=== PATIENT | male | born 1940 | race Caucasian/White ===

== ENCOUNTER → 2017-11-05 | Outpatient (CLI) | payer MEDICARE ==
[2017-11-05 09:49] LABS: HCT 43.2 % (39.0-53.0); HGB 14.1 gm/dL (13.0-17.5); MCH 28.3 pg (25.0-35.0); MCHC 32.5 g/dL (31.0-37.0); MCV 86.9 fL (80.0-100.0); Mean Platelet Volume 6.9; Platelet Count 179 k/uL (150-450); RBC 4.97 m/uL (4.30-5.90); RDW 14.2 % (11.5-15.5); WBC 8.9 k/uL (3.8-10.6)
[2017-11-05 10:07] LABS: Potassium 4.9 mmol/L (3.5-5.1)
== END | disposition home or self-care (01) ==
LOC: LABPAT 09:10
PROVIDERS: ATTEND Internal Medicine Interventional Cardiology
DX: Z01.812 Encounter for preprocedural laboratory examination (principal); I25.10 Atherosclerotic heart disease of native coronary artery without angina pectoris
CPT/HCPCS: 36415; 80051; 82565; 84520; 85027

== ENCOUNTER 2017-11-13 10:29 | Day surgery (SDC) | payer MEDICARE ==
[2017-11-08 14:06] VITALS: BMI 23.7
[~2017-11-13 10:29] MED LIST: ALPRAZolam 0.25 MG TAB PO PRN; ALPRAZolam 0.5 MG TAB PO PRN; ASPIRIN 325 MG TAB PO STA; NITROGLYCERIN SL TABS 0.4 MG TAB SUBLINGUAL PRN; SODIUM CHLORIDE 0.9% 1,000 ML in EMPTY BAG 1 BAG IV ONE
[2017-11-13 11:14] VITALS: TEMP 97.7
[2017-11-13] MEDS ORDERED: MIDAZOLAM 2 MG/2 ML VIAL ONE (12:15)
[2017-11-13] MEDS ORDERED: HEPARIN SODIUM 1,000 UN/ML (10ML VL) ONE (12:15)
[2017-11-13] MEDS ORDERED: VERAPAMIL 2.5 MG/ML 2 ML AMP ONE (12:15)
[2017-11-13] MEDS ORDERED: LIDOCAINE 2% INJ 20 MG/ML (20 ML MDV) ONE (12:15)
[2017-11-13] MEDS ORDERED: IV FLUID CONTINUATION 950 ML IV ONE (12:18)
[2017-11-13] MEDS ORDERED: MIDAZOLAM 2 MG/2 ML VIAL IVP ONE (12:29)
[2017-11-13] MEDS ORDERED: LIDOCAINE 2% INJ 20 MG/ML SQ ONE (12:32)
[2017-11-13] MEDS: VERAPAMIL SYRINGE (5 MG/10 ML) INTRAARTER ONE ×2 (12:33→13:31)
[2017-11-13] MEDS ORDERED: IOHEXOL 350 MG/ML 50ML BOTTLE INJ ONE (13:09)
[2017-11-13] MEDS ORDERED: IOPAMIDOL-370 125ML BTL INJ ONE ×2 (13:09)
[2017-11-13] MEDS ORDERED: ADENOSINE 90 MG in SODIUM CHLORIDE 0.9% 60 ML IVP ONE (13:26)
[2017-11-13] MEDS ORDERED: IOPAMIDOL-370 100ML BTL INJ ONE (13:32)
[2017-11-13] MEDS ORDERED: RX INFO: IV CONTRAST WAS GIVEN 1 EACH MISC MISCELLANE PRN (13:43)
[2017-11-13] MEDS ORDERED: SODIUM CHLORIDE 0.9% 1,000 ML IV SCH (13:45)
[2017-11-13 14:00] VITALS: RESP 16
--- NOTE | 2017-11-13 15:10 | CC ---
CARDIAC CATHETERIZATION REPORT DATE OF PROCEDURE: November 13, 2017 PERFORMING PHYSICIAN: Lee Griffith MD, technical maintenance technician. PROCEDURE PERFORMED: 1. Selective left and right coronary angiogram. 2. Left internal mammary artery angiogram. 3. Aortic root angiogram. 4. Left heart catheterization. 5. Fractional flow reserve of the left circumflex coronary artery. INDICATION: This is a pleasant 77-year-old gentleman who is known to have coronary artery disease and prior coronary artery bypass grafting where he received BRUNNER to LAD, was experiencing exertional dyspnea. He underwent myocardial perfusion imaging stress test and that showed ischemia. In view of that, a heart catheterization was recommended. APPROACH: Left radial artery. COMPLICATION: None. LEVEL OF SEDATION: Moderate with sedation length of 63 minutes. PROCEDURE DESCRIPTION: After obtaining an informed consent, the patient was brought to cardiac laboratory cureman. The left radial artery was cannulated using micropuncture technique and the micropuncture wire passed easily, then I placed a 6-Sammarinese sheath in the left radial artery. After that I gave the patient 2 mg of verapamil IA and 10,000 units of heparin IV. I did selective left coronary angiogram using JL4 catheter. I attempted engaging the right coronary artery using multiple catheters including JR4, Shoaib Negrete posterior, Shoaib Negrete, and multipurpose, as well as AL1, and I was unable. Then I did aortic root angiogram which showed the occlusion of the right coronary artery from the ostium. After that I did left internal mammary artery angiogram using JR4 catheter. Subsequently I did FFR of the left circumflex. Please see a separate paragraph for that. SELECTIVE CORONARY ANGIOGRAM: 1. The left main is calcified with intermediate disease distally by the bifurcation of the left circumflex appeared to be in the range of 50% to 60%. 2. The left circumflex has ostial disease appeared to be in the range of 50% to 60%. The mid and distal left circumflex are angiographically normal. 3. The LAD is 100% occluded by the ostium. 4. The RCA is 100% occluded by the ostium. CORONARY BYPASS ANGIOGRAM: The BRUNNER to LAD is patent. AORTIC ROOT ANGIOGRAM: The aortic root angiogram was performed in the ICELANDIC projection and using a power injection and the aortic root appeared to be mildly dilated, but the RCA was not opacified. FFR OF THE LEFT CIRCUMFLEX: Anticoagulation was initiated using the heparin given at the beginning. Subsequently after zeroing the Doppler wire and equalizing between the Doppler wire and the guiding catheter which was JL4 guide catheter, we did FFR per IV adenosine infusion and the FFR came in to be 0.88, which is nonischemic. CONCLUSION: 1. Triple-vessel coronary artery disease. 2. Occluded LAD by the ostium. 3. Intermediate disease involving the ostial left circumflex. 4. Occluded RCA by the ostium. 5. Patent BRUNNER to LAD. 6. The FFR of the left circumflex was nonischemic and came in to be 0.88. 7. The RCA fills by collateral from the left coronary system. POSTPROCEDURE MANAGEMENT: 1. Maximize medical treatment. 2. Follow up with the patient. QUINTIN / LARRYN: [id number] /
--- NOTE | 2017-11-13 15:16 | LTR ---
DATE OF SERVICE: November 13, 2017 RE: Heraclio Kwasi Dear Dr. Pimentel; Mr. Kwasi Pulliam underwent a heart catheterization today. It did reveal patent BRUNNER to LAD. Beside that, it did reveal intermediate disease involving the left circumflex coronary artery with adequate FFR on it came in to be nonischemic. Maximized medical treatment is recommended at this point of time. I want to thank you for allowing me to participate in his care and please do not hesitate to call if you have any question or concern. Sincerely, Lee Griffith MD MMKRISTAN / LARRYN: [id number] /
[2017-11-13 17:36] VITALS: BP 116/82; PULSE 62
== END 2017-11-13 18:00 | disposition home or self-care (01) ==
LOC: CATHCVL 10:29
PROVIDERS: ATTEND Internal Medicine Interventional Cardiology
DX: I25.110 Atherosclerotic heart disease of native coronary artery with unstable angina pectoris (principal); I25.82 Chronic total occlusion of coronary artery; I10 Essential (primary) hypertension; Z95.1 Presence of aortocoronary bypass graft; Z87.891 Personal history of nicotine dependence; Z95.5 Presence of coronary angioplasty implant and graft; I70.213 Atherosclerosis of native arteries of extremities with intermittent claudication, bilateral legs; Z95.820 Peripheral vascular angioplasty status with implants and grafts; Z95.828 Presence of other vascular implants and grafts; E78.5 Hyperlipidemia, unspecified; Z79.02 Long term (current) use of antithrombotics/antiplatelets; Z79.82 Long term (current) use of aspirin; Z79.899 Other long term (current) drug therapy
CPT/HCPCS: 93571; 93459; 93567; 85347; C1769; J2001; J2250; J0153; J1644; Q9967 ×3

== ENCOUNTER 2020-08-24 22:59 | Observation (INO) | payer MEDICARE ==
[2020-08-24 23:10] LABS: Glucose,Whole Blood 113 mg/dL (75-99)
--- NOTE | 2020-08-24 23:12 | ED ---
Syncope HPI - General Stated Complaint: Syncope Time Seen by Provider: 08/24/20 23:05 Source: patient, EMS Mode of arrival: EMS Limitations: no limitations - History of Present Illness Initial Comments: This patient is an 80-year-old man brought by ambulance to have evaluation after syncopal episode. EMS reports that they were called to the patient's residence because he had passed out sitting on a commode. The patient does recall going to the bathroom but does not recall anything until he arrived here in the emergency department. The patient states that he had been feeling like his usual self today. He was not having symptoms prior to this episode. EMS did not observe any seizure like activity. Patient denies any trauma and does not appear to have fallen. MD Complaint: loss of consciousness -: minutes(s) Prodromal Symptoms: none -: minutes(s) Witnessed: yes - by bystander, yes - by EMS Injuries Sustained Associated with Event: None Current Symptoms: nausea History: history of CAD Context: other (Bowel movement) Treatments Prior to Arrival: none - Related Data Home Medications Medication Instructions Recorded Confirmed Aspirin EC [Ecotrin Low Dose] 325 mg PO DAILY 08/14/14 11/13/17 Atenolol [Tenormin] 25 mg PO DAILY 08/14/14 11/13/17 Atorvastatin Calcium [Lipitor] 40 mg PO HS 08/14/14 11/13/17 Bifidobacterium Infantis [Align] 4 mg PO DAILY 08/14/14 11/13/17 Cholecalciferol [Vitamin D3 (25 2,000 unit PO DAILY 08/14/14 11/13/17 Mcg = 1000 Iu)] Citrucel 1,500 mg PO DAILY 08/14/14 11/13/17 [place]-3S/Dha/Epa/Fish Oil [[place]-3 1,200 mg PO DAILY 08/14/14 11/13/17 Fish Oil 1,000 mg Sfgl] Omeprazole [PriLOSEC] 20 mg PO AC-BRKFST 08/14/14 11/13/17 Clopidogrel Bisulfate [Plavix] 75 mg PO DAILY 11/08/17 11/13/17 Docusate [Colace] 100 mg PO BID 11/08/17 11/13/17 Magnesium Gluconate [Magonate] 250 mg PO DAILY 11/08/17 11/13/17 ramipriL [Altace] 5 mg PO BID 11/08/17 11/13/17 Allergies Allergy/AdvReac Type Severity Reaction Status Date / Time No Known Allergies Allergy Verified 02/23/20 11:31 Review of Systems ROS Statement: Those systems with pertinent positive or pertinent negative responses have been documented in the HPI. ROS Other: All systems not noted in ROS Statement are negative. Constitutional: Denies: fever, chills Eyes: Denies: vision change Respiratory: Denies: cough, dyspnea, hemoptysis Cardiovascular: Reports: syncope. Denies: chest pain, palpitations, edema Gastrointestinal: Reports: nausea, vomiting. Denies: abdominal pain, diarrhea, melena, hematochezia Genitourinary: Denies: dysuria, hematuria Musculoskeletal: Denies: back pain Skin: Denies: rash Neurological: Denies: headache, weakness, numbness Past Medical History Past Medical History: Coronary Artery Disease (CAD), Chest Pain / Angina Additional Past Medical History / Comment(s): cataract, stents placed Last Myocardial Infarction Date:: 05/2004 History of Any Multi-Drug Resistant Organisms: None Reported Past Surgical History: Coronary Bypass/CABG, Heart Catheterization, Heart Catheterization With Stent, Hernia Repair Additional Past Surgical History / Comment(s): heart cath, stents, CABG, left leg fem-pop bypass Past Anesthesia/Blood Transfusion Reactions: Postoperative Nausea & Vomiting (PONV) Date of Last Stent Placement:: 12/16/97 Past Psychological History: No Psychological Hx Reported Smoking Status: Never smoker Past Alcohol Use History: None Reported Past Drug Use History: None Reported - Past Family History Mother Family Medical History: Cancer, Osteoarthritis (OA) Additional Family Medical History / Comment(s): multiple bowel problems, osteoporosis Father Family Medical History: Chest Pain / Angina, CVA/TIA, Myocardial Infarction (MD) Sister(s) Family Medical History: COPD, Myocardial Infarction (MD) Brother(s) Family Medical History: Myocardial Infarction (MD) Daughter(s) Family Medical History: Diabetes Mellitus (one daughter with diabetes.) General Exam Limitations: no limitations General appearance: alert, in no apparent distress, cachectic Head exam: Present: atraumatic, normocephalic Eye exam: Present: normal appearance, PERRL, EOMI. Absent: scleral icterus, conjunctival injection ENT exam: Present: mucous membranes dry Neck exam: Present: normal inspection, full ROM Respiratory exam: Present: normal lung sounds bilaterally. Absent: respiratory distress, wheezes, rales, rhonchi, stridor Cardiovascular Exam: Present: normal rhythm (With ectopic beats), bradycardia, normal heart sounds. Absent: systolic murmur, diastolic murmur, rubs GI/Abdominal exam: Present: soft. Absent: distended, tenderness, guarding, rebound, rigid, mass Extremities exam: Present: normal inspection, normal capillary refill. Absent: pedal edema, calf tenderness Back exam: Present: normal inspection. Absent: CVA tenderness (R), CVA tenderness (L) Neurological exam: Present: alert Skin exam: Present: warm, dry, intact, pallor. 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 - EKG Results: EKG: interpreted by ELMER, sinus rhythm, normal axis EKG shows: bradycardia - MD, Pacemaker, Normal: Myocardial infarction: inferior MD (old age indeterminate) Medical Decision Making - Lab Data Result diagrams: 08/24/20 23:23 08/24/20 23:23 Lab Results 08/24/20 08/24/20 08/24/20 Range/Units 23:04 23:23 23:23 WBC 8.8 (3.8-10.6) k/uL RBC 4.78 (4.30-5.90) m/uL Hgb 14.3 (13.0-17.5) gm/dL Hct 42.1 (39.0-53.0) % MCV 88.0 (80.0-100.0) fL MCH 29.8 (25.0-35.0) pg MCHC 33.9 (31.0-37.0) g/dL RDW 13.8 (11.5-15.5) % Plt Count 184 (150-450) k/uL MPV 6.4 Neutrophils % 52 % Lymphocytes % 34 % Monocytes % 7 % Eosinophils % 4 % Basophils % 1 % Neutrophils # 4.6 (1.3-7.7) k/uL Lymphocytes # 3.0 (1.0-4.8) k/uL Monocytes # 0.6 (0-1.0) k/uL Eosinophils # 0.3 (0-0.7) k/uL Basophils # 0.1 (0-0.2) k/uL PT 11.3 (9.0-12.0) sec INR 1.1 (<1.2) APTT 20.0 L (22.0-30.0) sec D-Dimer 3.21 H (<0.60) mg/L FEU Sodium (137-145) mmol/L Potassium (3.5-5.1) mmol/L Chloride (98-107) mmol/L Carbon Dioxide (22-30) mmol/L Anion Gap mmol/L BUN (9-20) mg/dL Creatinine (0.66-1.25) mg/dL Est GFR (CKD-EPI)AfAm (>60 ml/min/1.73 sqM) Est GFR (CKD-EPI)NonAf (>60 ml/min/1.73 sqM) Glucose (74-99) mg/dL POC Glucose (mg/dL) 113 H (75-99) mg/dL POC Glu Tool [employer] Level Five ID Betsy, Padma Plasma Lactic Acid Ulices (0.7-2.0) mmol/L Calcium (8.4-10.2) mg/dL Magnesium (1.6-2.3) mg/dL Total Bilirubin (0.2-1.3) mg/dL AST (17-59) U/L ALT (4-49) U/L Alkaline Phosphatase (38-126) U/L Troponin I (0.000-0.034) ng/mL Total Protein (6.3-8.2) g/dL Albumin (3.5-5.0) g/dL Coronavirus (PCR) (Not Detectd) 08/24/20 08/24/20 08/24/20 Range/Units 23:23 23:23 23:23 WBC (3.8-10.6) k/uL RBC (4.30-5.90) m/uL Hgb (13.0-17.5) gm/dL Hct (39.0-53.0) % MCV (80.0-100.0) fL MCH (25.0-35.0) pg MCHC (31.0-37.0) g/dL RDW (11.5-15.5) % Plt Count (150-450) k/uL MPV Neutrophils % % Lymphocytes % % Monocytes % % Eosinophils % % Basophils % % Neutrophils # (1.3-7.7) k/uL Lymphocytes # (1.0-4.8) k/uL Monocytes # (0-1.0) k/uL Eosinophils # (0-0.7) k/uL Basophils # (0-0.2) k/uL PT (9.0-12.0) sec INR (<1.2) APTT (22.0-30.0) sec D-Dimer (<0.60) mg/L FEU Sodium 133 L (137-145) mmol/L Potassium 4.4 (3.5-5.1) mmol/L Chloride 102 (98-107) mmol/L Carbon Dioxide 21 L (22-30) mmol/L Anion Gap 10 mmol/L BUN 18 (9-20) mg/dL Creatinine 1.07 (0.66-1.25) mg/dL Est GFR (CKD-EPI)AfAm 76 (>60 ml/min/1.73 sqM) Est GFR (CKD-EPI)NonAf 65 (>60 ml/min/1.73 sqM) Glucose 128 H (74-99) mg/dL POC Glucose (mg/dL) (75-99) mg/dL POC Glu Tool And Die Maker Level Five ID Plasma Lactic Acid Ulices 1.6 (0.7-2.0) mmol/L Calcium 9.4 (8.4-10.2) mg/dL Magnesium 1.9 (1.6-2.3) mg/dL Total Bilirubin 0.8 (0.2-1.3) mg/dL AST 40 (17-59) U/L ALT 34 (4-49) U/L Alkaline Phosphatase 76 (38-126) U/L Troponin I <0.012 (0.000-0.034) ng/mL Total Protein 6.8 (6.3-8.2) g/dL Albumin 4.3 (3.5-5.0) g/dL Coronavirus (PCR) (Not Detectd) 08/25/20 Range/Units 01:11 WBC (3.8-10.6) k/uL RBC (4.30-5.90) m/uL Hgb (13.0-17.5) gm/dL Hct (39.0-53.0) % MCV (80.0-100.0) fL MCH (25.0-35.0) pg MCHC (31.0-37.0) g/dL RDW (11.5-15.5) % Plt Count (150-450) k/uL MPV Neutrophils % % Lymphocytes % % Monocytes % % Eosinophils % % Basophils % % Neutrophils # (1.3-7.7) k/uL Lymphocytes # (1.0-4.8) k/uL Monocytes # (0-1.0) k/uL Eosinophils # (0-0.7) k/uL Basophils # (0-0.2) k/uL PT (9.0-12.0) sec INR (<1.2) APTT (22.0-30.0) sec D-Dimer (<0.60) mg/L FEU Sodium (137-145) mmol/L Potassium (3.5-5.1) mmol/L Chloride (98-107) mmol/L Carbon Dioxide (22-30) mmol/L Anion Gap mmol/L BUN (9-20) mg/dL Creatinine (0.66-1.25) mg/dL Est GFR (CKD-EPI)AfAm (>60 ml/min/1.73 sqM) Est GFR (CKD-EPI)NonAf (>60 ml/min/1.73 sqM) Glucose (74-99) mg/dL POC Glucose (mg/dL) (75-99) mg/dL POC Glu Tool And Die Maker Level Five ID Plasma Lactic Acid Ulices (0.7-2.0) mmol/L Calcium (8.4-10.2) mg/dL Magnesium (1.6-2.3) mg/dL Total Bilirubin (0.2-1.3) mg/dL AST (17-59) U/L ALT (4-49) U/L Alkaline Phosphatase (38-126) U/L Troponin I (0.000-0.034) ng/mL Total Protein (6.3-8.2) g/dL Albumin (3.5-5.0) g/dL Coronavirus (PCR) Not Detected (Not Detectd) Disposition Clinical Impression: Syncope, Bradycardia Disposition: ADMITTED IP TO THIS HOSP Condition: Fair
[2020-08-24 23:36] LABS: Basophils # (A) 0.1 k/uL (0-0.2); Basophils % (A) 1 %; Eosinophils # (A) 0.3 k/uL (0-0.7); Eosinophils % (A) 4 %; HCT 42.1 % (39.0-53.0); HGB 14.3 gm/dL (13.0-17.5); Lymphocytes % (A) 34 %; MCH 29.8 pg (25.0-35.0); MCHC 33.9 g/dL (31.0-37.0); Mean Platelet Volume 6.4; Monocytes # (A) 0.6 k/uL (0-1.0); Monocytes % (A) 7 %; Neutrophils # (A) 4.6 k/uL (1.3-7.7); Neutrophils % (A) 52 %; Platelet Count 184 k/uL (150-450); RBC 4.78 m/uL (4.30-5.90); RDW 13.8 % (11.5-15.5); WBC 8.8 k/uL (3.8-10.6)
--- NOTE | 2020-08-24 23:44 | CT ---
EXAMINATION TYPE: CT brain wo con DATE OF EXAM: 08/24/2020 COMPARISON: 08/15/2014 HISTORY: syncope. prior study on PACS CT DLP: 1212.4 mGycm Automated exposure control for dose reduction was used. There is cerebral cortical atrophy. There is no mass effect nor midline shift. There is no sign of in tracranial hemorrhage. Calvarium is intact. Skull base is intact. IMPRESSION: Cerebral atrophy. No acute intracranial abnormality. No change.
--- NOTE | 2020-08-24 23:45 | XR ---
EXAMINATION TYPE: XR chest 1V portable DATE OF EXAM: 08/24/2020 COMPARISON: 08/14/2014 HISTORY: Syncope TECHNIQUE: FINDINGS: There is no heart failure nor confluent pneumonic infiltrate. There is some coarsening of t he interstitial markings. There are no hilar masses. Heart size is normal. Thoracic aorta is atheroma tous. There are chest leads. IMPRESSION: Interstitial fibrotic changes. There is improved inspiration compared to old exam. No hea rt failure.
[2020-08-24 23:53] LABS: Albumin 4.3 g/dL (3.5-5.0); Calcium 9.4 mg/dL (8.4-10.2); Magnesium 1.9 mg/dL (1.6-2.3); Potassium 4.4 mmol/L (3.5-5.1); Total Bilirubin 0.8 mg/dL (0.2-1.3); Total Protein 6.8 g/dL (6.3-8.2)
[2020-08-25 00:01] LABS: INR 1.1 (<1.2); Prothrombin Time 11.3 sec (9.0-12.0)
[2020-08-25 00:08] LABS: D-Dimer 3.21 mg/L FEU (<0.60)
--- NOTE | 2020-08-25 01:32 | CT ---
EXAM: CT Angiography Chest With Intravenous Contrast CLINICAL HISTORY: Possible PE. TECHNIQUE: Axial computed tomographic angiography images of the chest with intravenous contrast. CTDI is 's 14.4 mGy and DLP is 437.3 mGy-cm. This CT exam was performed using one or more of the following dose reduction techniques: automated exposure control, adjustment of the mA and/or kV according to patient size, and/or use of iterative reconstruction technique. MIP reconstructed images were created and reviewed. COMPARISON: No relevant prior studies available. FINDINGS: Pulmonary arteries: Unremarkable. No pulmonary embolism. Aorta: Atherosclerotic calcification of the thoracic aorta and its major branches including the coronary arteries. No evidence of dissection or aneurysm.. Lungs: Severe diffuse emphysematous changes. No mass. Pleural space: Unremarkable. No significant effusion. No pneumothorax. Heart: See above. Bones/joints: No acute fracture. No dislocation. Soft tissues: Unremarkable. Lymph nodes: Unremarkable. No enlarged lymph nodes. Other findings: No clear evidence of acute infiltration. IMPRESSION: No evidence of pulmonary embolus. Severe diffuse emphysematous changes.
[2020-08-25] MEDS ORDERED: NITROGLYCERIN SL TABS 0.4 MG TAB SUBLINGUAL PRN (02:10)
[2020-08-25] MEDS: PANTOPRAZOLE 40 MG TABLET PO SCH (06:53)
[2020-08-25] MEDS ORDERED: CITRUCEL 500 MG PO SCH (09:00)
[2020-08-25] MEDS ORDERED: ASPIRIN 325 MG TAB PO SCH (09:00)
[2020-08-25] MEDS ORDERED: atenoloL 25 MG TAB PO SCH (09:00)
[2020-08-25] MEDS ORDERED: NON FORMULARY DRUG (Magnesium Gluconate 500 MG Tab) PO SCH (09:00)
[2020-08-25] MEDS: CLOPIDOGREL 75 MG TAB PO SCH (09:15)
[2020-08-25] MEDS: LACTOBACILLUS ACIDOPH & BULGAR 1 EACH PACKET PO SCH (09:15)
[2020-08-25] MEDS: lisinopriL 20 MG TAB PO SCH ×2 (09:15→20:22)
[2020-08-25] MEDS: ASPIRIN 81 MG PO SCH (09:15)
[2020-08-25] MEDS: DOCUSATE 100 MG CAP PO SCH ×2 (09:15→20:22)
[2020-08-25] MEDS: CHOLECALCIFEROL 1,000 UNIT TAB PO SCH (09:15)
--- NOTE | 2020-08-25 09:44 | US ---
EXAMINATION TYPE: US carotid duplex BILAT DATE OF EXAM: 08/25/2020 COMPARISON: NONE CLINICAL HISTORY: syncope. syncope, leg weakness EXAM MEASUREMENTS: RIGHT: Peak Systolic Velocity (PSV) cm/sec ----- Right CCA: 95.8 ----- Right ICA: 119.1 ----- Right ECA: 176.3 ICA/CCA ratio: 1.2 RIGHT: End Diastole cm/sec ----- Right CCA: 17.3 ----- Right ICA: 27.5 ----- Right ECA: 18.4 LEFT: Peak Systolic Velocity (PSV) cm/sec ----- Left CCA: 83.4 ----- Left ICA: 200.4 ----- Left ECA: 199.6 ICA/CCA ratio: 2.4 LEFT: End Diastole cm/sec ----- Left CCA: 13.1 ----- Left ICA: 41.5 ----- Left ECA: 18.4 VERTEBRALS (direction of flow): Right Vertebral: Antegrade Left Vertebral: Antegrade Rhythm: Normal Severe hyperechoic plaque at right carotid bulb with more mild to moderate plaque left carotid bulb. Increased velocities and abnormal ratio noted on the left side. IMPRESSION: Moderate to severe atherosclerotic changes without hemodynamically significant stenosis estimated 50-69% on the left felt present. Further investigation with CTA or MRA of the neck is adv ised. Criteria for Assigning % of Stenosis / Diameter reduction (Estimation based on the indirect measurements of the internal carotid artery velocities (ICA PSV). 1. Normal (no stenosis)=ICA PSV < 125 cm/s: ratio < 2.0: ICA EDV<40 cm/s. 2. Less than 50% stenosis=ICA PSV < 125 cm/s: ratio < 2.0: ICA EDV<40 cm/s. 3. 50 to 69% stenosis=ICA PSV of 125 to 230 cm/s: ration 2.0 ? 4.0: ICA EDV 40-100 cm/s. 4. Greater than 70% stenosis to near occlusion= ICA PSV > 230 cm/s: ratio > 4.0: ICA EDV > 100 cm/s. 5. Near occlusion= ICA PSV velocities may be low or undetectable: variable ratio and ICA EDV. 6. Total occlusion=unable to detect flow.
[2020-08-25] MEDS: ENOXAPARIN 40 MG/0.4 ML SYRINGE SQ SCH (10:24)
--- NOTE | 2020-08-25 10:52 | P.CRDCN ---
History of Present Illness History of present illness: HISTORY OF PRESENTING ILLNESS This is a pleasant 80-year-old male past medical history significant for coronary artery disease status post bypass grafting with BRUNNER to LAD in 2004 and multiple PCI's, peripheral vascular disease status post femoral-popliteal bypass, bilateral lower extremity stenting, left carotid endarterectomy, hypertension and dyslipidemia. He does not follow regularly in the office with a ice cream dipper, however he has been off in 2018 for outpatient cardiac catheterization. We have been asked to see in consultation for syncope. He states he took his evening medications yesterday and went to bed. He woke up around 10 PM to use the restroom. While he was walking to the bathroom he started feeling acutely dizzy and lightheaded associated with some diaphoresis. This is the last thing that the patient remembers. He states after that all he remembers is waking up at the hospital. According to EMS documentation the called EMS secondary to unresponsiveness while the patient was on the toilet. Upon their arrival he was sitting on the toilet and was noted to be pale and diaphoretic. His blood pressure at that time was 118/95 with a heart rate of 54 pulse ox of 98% and blood sugar of 299. He is currently seen and examined resting comfortably lying flat in bed. He states he continues to feel somewhat lightheaded telemetry tracings indicate heart rate is 69. He denies symptoms of chest pain, shortness of breath or palpitations. Most recent cardiac catheterization in 2018 showed intermediate disease at the left circumflex, 50- 60% with an FFR of 0.88, patent BRUNNER to LAD, occluded LAD at the ostium, intermediate disease involving the ostial circumflex, occluded RCA at the ostium with collateral flow from the left coronary system. Most recent echocardiogram obtained in 2013 reveals preserved LV systolic function with ejection fraction 50-55% with inferior and septal hypokinesia noted, mild MR and mild TR. DIAGNOSTICS EKG reveals sinus bradycardia heart rate of 49, inferior Q waves and nonspecific abnormalities anteriorly. Telemetry tracings indicate sinus rhythm and sinus bradycardia with no acute arrhythmias or pauses. Chest xray interstitial fibrotic changes with no overt heart failure. CTA negative for pulmonary embolism with severe diffuse emphysematous changes noted. Bilateral carotid Doppler reveals moderate to severe atherosclerotic changes 50- 69% stenosis noted on the left, recommend CTA or MRA of the neck. Laboratory reviewed, CBC unremarkable, d-dimer 3.21, sodium 133, potassium 4.4, creatinine 1.07, magnesium 1.9, cardiac enzymes negative 3. Current cardiac medications include aspirin 81 mg daily, atenolol 25 mg daily, atorvastatin 80 mg daily, Pletal 100 mg daily, Plavix 75 mg daily and ramipril 5 mg twice a day. REVIEW OF SYSTEMS At the time of my exam: CONSTITUTIONAL: Denies fever or chills. CARDIOVASCULAR: Denies chest pain, shortness of breath, orthopnea, PND or palpitations. RESPIRATORY: Denies cough. GASTROINTESTINAL: Denies abdominal pain, diarrhea, constipation, nausea or vomiting. MUSCULOSKELETAL: Denies myalgias. NEUROLOGIC: Complains of feeling lightheaded and dizzy. Denies numbness, tingling or weakness. ENDOCRINE: Denies fatigue, weight change, polydipsia or polyurina. GENITOURINARY: Denies burning, hematuria or urgency with micturation. HEMATOLOGIC: Denies history of anemia or bleeding. PHYSICAL EXAMINATION Blood pressure 153/80 heart rate 74 afebrile and maintaining oxygen saturation on nasal cannula. CONSTITUTIONAL: No apparent distress. HEENT: Head is normocephalic. Pupils are equal, round. Sclerae anicteric. Mucous membranes of the mouth are moist. No JVD. Bilateral carotid bruit left greater than right. CHEST EXAMINATION: Lungs are clear to auscultation. No chest wall tenderness is noted on palpation or with deep breathing. Diminished bilaterally. HEART EXAMINATION: Regular rate and rhythm. S1, S2 heard. Systolic ejection murmur at the base, no gallops or rub. ABDOMEN: Soft, nontender. Positive bowel sounds. EXTREMITIES: 1+ peripheral pulses, no lower extremity edema and no calf tenderness. NEUROLOGIC EXAMINATION: Patient is awake, alert and oriented x3. ASSESSMENT Syncope Coronary artery disease status post bypass grafting Peripheral vascular disease Hypertension Dyslipidemia PLAN Syncope likely related to vasovagal spell. Could be exacerbated by bradycardia. Echocardiogram has been requested and will be reviewed. Hold atenolol. Check for orthostatic changes. Ongoing telemetry monitoring. Further recommendations to follow based upon clinical course. Thank you kindly for this consultation. Nurse Practitioner note has been reviewed, I agree with a documented findings and plan of care. Patient was seen and examined. Past Medical History Past Medical History: Coronary Artery Disease (CAD), Chest Pain / Angina Additional Past Medical History / Comment(s): cataract, stents placed Last Myocardial Infarction Date:: 05/2004 History of Any Multi-Drug Resistant Organisms: None Reported Past Surgical History: Coronary Bypass/CABG, Heart Catheterization, Heart Catheterization With Stent, Hernia Repair Additional Past Surgical History / Comment(s): heart cath, stents, CABG, left leg fem-pop bypass Past Anesthesia/Blood Transfusion Reactions: Postoperative Nausea & Vomiting (PONV) Date of Last Stent Placement:: 12/16/97 Past Psychological History: No Psychological Hx Reported Smoking Status: Never smoker Past Alcohol Use History: None Reported Past Drug Use History: None Reported - Past Family History Mother Family Medical History: Cancer, Osteoarthritis (OA) Additional Family Medical History / Comment(s): multiple bowel problems, osteoporosis Father Family Medical History: Chest Pain / Angina, CVA/TIA, Myocardial Infarction (IA) Sister(s) Family Medical History: COPD, Myocardial Infarction (IA) Brother(s) Family Medical History: Myocardial Infarction ([place]) Daughter(s) Family Medical History: Diabetes Mellitus (one daughter with diabetes.) Medications and Allergies Home Medications Medication Instructions Recorded Confirmed Type Aspirin EC [Ecotrin Low Dose] 81 mg PO DAILY 08/14/14 08/25/20 History Atenolol [Tenormin] 25 mg PO DAILY 08/14/14 08/25/20 History Bifidobacterium Infantis [Align] 4 mg PO DAILY 08/14/14 08/25/20 History Cholecalciferol [Vitamin D3 (25 1,000 unit PO DAILY 08/14/14 08/25/20 History Mcg = 1000 Iu)] [place]-3S/Dha/Epa/Fish Oil [[place]-3 1,200 mg PO DAILY 08/14/14 08/25/20 History Fish Oil 1,000 mg Sfgl] Omeprazole [PriLOSEC] 20 mg PO AC-BRKFST 08/14/14 08/25/20 History Clopidogrel Bisulfate [Plavix] 75 mg PO DAILY 11/08/17 08/25/20 History ramipriL [Altace] 5 mg PO BID 11/08/17 08/25/20 History Atorvastatin [Lipitor] 80 mg PO HS 08/25/20 08/25/20 History Cilostazol [Pletal] 100 mg PO DAILY 08/25/20 08/25/20 History Magnesium 250 mg PO DAILY 08/25/20 08/25/20 History Allergies Allergy/AdvReac Type Severity Reaction Status Date / Time No Known Allergies Allergy Verified 08/25/20 08:19 Physical Exam Vitals: Vital Signs Temp Pulse Pulse Resp BP BP Pulse Ox 08/25/20 03:06 98 F 74 18 153/80 97 08/25/20 01:16 97.6 F 58 L 18 127/55 99 08/24/20 23:14 46 L 20 112/50 97 08/24/20 23:02 48 L 18 132/59 98 Intake and Output 08/24/20 08/25/20 08/25/20 22:59 06:59 14:59 Other: Weight 90.718 kg Results 08/24/20 23:23 08/24/20 23:23 Cardiac Enzymes 08/24/20 08/24/20 08/25/20 Range/Units 23:23 23:23 02:31 AST 40 (17-59) U/L Troponin I <0.012 0.020 (0.000-0.034) ng/mL 08/25/20 Range/Units 05:36 AST (17-59) U/L Troponin I 0.025 (0.000-0.034) ng/mL Coagulation 08/24/20 Range/Units 23:23 PT 11.3 (9.0-12.0) sec APTT 20.0 L (22.0-30.0) sec CBC 08/24/20 Range/Units 23:23 WBC 8.8 (3.8-10.6) k/uL RBC 4.78 (4.30-5.90) m/uL Hgb 14.3 (13.0-17.5) gm/dL Hct 42.1 (39.0-53.0) % Plt Count 184 (150-450) k/uL Comprehensive Metabolic Panel 08/24/20 Range/Units 23:23 Sodium 133 L (137-145) mmol/L Potassium 4.4 (3.5-5.1) mmol/L Chloride 102 (98-107) mmol/L Carbon Dioxide 21 L (22-30) mmol/L BUN 18 (9-20) mg/dL Creatinine 1.07 (0.66-1.25) mg/dL Glucose 128 H (74-99) mg/dL Calcium 9.4 (8.4-10.2) mg/dL AST 40 (17-59) U/L ALT 34 (4-49) U/L Alkaline Phosphatase 76 (38-126) U/L Total Protein 6.8 (6.3-8.2) g/dL Albumin 4.3 (3.5-5.0) g/dL Current Medications Generic Name Dose Route Start Last Admin Trade Name Freq PRN Reason Stop Dose Admin Aspirin 325 mg 08/25/20 09:00 Aspirin 325 Mg Tab PO DAILY [facility] Atenolol 25 mg 08/25/20 09:00 Atenolol 25 Mg Tab PO DAILY [facility] Atorvastatin Calcium 40 mg 08/25/20 21:00 Atorvastatin 40 Mg Tab PO HS [facility] Cholecalciferol 2,000 unit 08/25/20 09:00 Cholecalciferol 1,000 Unit Tab PO DAILY [facility] Clopidogrel Bisulfate 75 mg 08/25/20 09:00 Clopidogrel 75 Mg Tab PO DAILY [facility] Docusate Sodium 100 mg 08/25/20 09:00 Docusate 100 Mg Cap PO BID [facility] Enoxaparin Sodium 40 mg 08/25/20 09:00 Enoxaparin 40 Mg/0.4 Ml Syringe SQ DAILY [facility] Lactobacillus Acidoph/Bulgaricus 1 each 08/25/20 09:00 Lactobacillus Acidoph & Bulgar 1 Each Packet PO DAILY [facility] Lisinopril 20 mg 08/25/20 09:00 Lisinopril 20 Mg Tab PO BID [facility] Nitroglycerin 0.4 mg 08/25/20 02:10 Nitroglycerin Sl Tabs 0.4 Mg Tab SUBLINGUAL Q5M PRN Chest Pain Pantoprazole Sodium 40 mg 08/25/20 07:30 08/25/20 06:53 Pantoprazole 40 Mg Tablet PO 40 mg AC-BRKFST [facility] Administration Intake and Output 08/24/20 08/25/20 08/25/20 22:59 06:59 14:59 Other: Weight 90.718 kg 08/24/20 23:23 08/24/20 23:23
--- NOTE | 2020-08-25 11:20 | ECHOF ---
Referral Reason:Syncop2 MEASUREMENTS -------- HEIGHT: 182.9 cm WEIGHT: 90.7 kg BP: 153/80 RVIDd: 2.9 cm (< 3.3) IVSd: 1.3 cm (0.6 - 1.1) LVIDd: 5.2 cm (3.9 - 5.3) LVPWd: 1.3 cm (0.6 - 1.1) IVSs: 1.7 cm LVIDs: 3.5 cm LVPWs: 2.1 cm LA Diam: 4.1 cm (2.7 - 3.8) LAESV Index (A-L): 36.66 ml/m Ao Diam: 3.6 cm (2.0 - 3.7) AV Cusp: 2.0 cm (1.5 - 2.6) MV EXCURSION: 16.144 mm (> 18.000) MV EF SLOPE: 35 mm/s (70 - 150) EPSS: 0.9 cm MV E Kris: 0.64 m/s MV DecT: 394 ms MV A Kris: 1.12 m/s MV E/A Ratio: 0.58 AR PHT: 598 ms FINDINGS -------- This was a technically good study. The left ventricular size is normal. There is mild concentric left ventricular hypertrophy. Overa ll left ventricular systolic function is mild-moderately impaired with, an EF between 40 - 45 %. Ba soumya inferior LV wall motion is hypokinetic. Basal inferoseptal LV wall motion is hypokinetic. M id inferior LV wall motion is hypokinetic. Mid inferoseptal LV wall motion is hypokinetic. The right ventricle is normal in size. LA is moderately dilated 34-39 ml/m2 The right atrium is normal in size. Interatrial and interventricular septum intact. Aortic valve is trileaflet and is mildly thickened. There is picn-vy-ruvluvtk aortic regurgitation. Mild mitral regurgitation is present. Trace tricuspid regurgitation present. Trace/mild (physiologic) pulmonic regurgitation. The aortic root size is normal. Normal inferior vena cava with normal inspiratory collapse consistent with estimated right atrial pre ssure of 5 mmHg. There is no pericardial effusion. CONCLUSIONS -------- 1. The left ventricular size is normal. 2. There is mild concentric left ventricular hypertrophy. 3. Overall left ventricular systolic function is mild-moderately impaired with, an EF between 40 - 45 %. 4. Basal inferior LV wall motion is hypokinetic. 5. Basal inferoseptal LV wall motion is hypokinetic. 6. Mid inferior LV wall motion is hypokinetic. 7. Mid inferoseptal LV wall motion is hypokinetic. 8. LA is moderately dilated 34-39 ml/m2 9. Aortic valve is trileaflet and is mildly thickened. 10. There is dlck-ka-ysqkrjpq aortic regurgitation. 11. Mild mitral regurgitation is present. 12. Trace tricuspid regurgitation present. 13. Trace/mild (physiologic) pulmonic regurgitation. 14. There is no pericardial effusion. PRN OCCUPATIONAL THERAPIST: MARIA ESTHER Villanueva
[2020-08-25 12:09] LABS: Glucose,Whole Blood 107 mg/dL (75-99)
[2020-08-25 17:13] LABS: Glucose,Whole Blood 113 mg/dL (75-99)
[2020-08-25] MEDS ORDERED: ATORVASTATIN 80 MG TAB PO SCH (21:00)
[2020-08-25] MEDS ORDERED: ATORVASTATIN 40 MG TAB PO SCH (21:00)
[2020-08-26 05:36] VITALS: RESP 18
[2020-08-26] MEDS: PANTOPRAZOLE 40 MG TABLET PO SCH (06:34)
[2020-08-26 07:57] LABS: Basophils % (A) 0 %; Eosinophils # (A) 0.2 k/uL (0-0.7); Eosinophils % (A) 3 %; HCT 41.2 % (39.0-53.0); HGB 13.6 gm/dL (13.0-17.5); Lymphocytes # (A) 1.3 k/uL (1.0-4.8); Lymphocytes % (A) 17 %; MCH 29.5 pg (25.0-35.0); MCHC 33.1 g/dL (31.0-37.0); MCV 89.1 fL (80.0-100.0); Mean Platelet Volume 6.5; Monocytes # (A) 0.5 k/uL (0-1.0); Monocytes % (A) 6 %; Neutrophils # (A) 5.5 k/uL (1.3-7.7); Neutrophils % (A) 72 %; Platelet Count 162 k/uL (150-450); RBC 4.62 m/uL (4.30-5.90); RDW 13.7 % (11.5-15.5); WBC 7.6 k/uL (3.8-10.6)
[2020-08-26 08:17] LABS: Potassium 4.6 mmol/L (3.5-5.1); Total Protein 6.5 g/dL (6.3-8.2)
[2020-08-26] MEDS ORDERED: cilostazoL 100 MG TAB PO SCH (09:00)
[2020-08-26] MEDS: lisinopriL 20 MG TAB PO SCH (10:35)
[2020-08-26] MEDS: ASPIRIN 81 MG PO SCH (10:35)
[2020-08-26] MEDS: CHOLECALCIFEROL 1,000 UNIT TAB PO SCH (10:35)
[2020-08-26] MEDS: ENOXAPARIN 40 MG/0.4 ML SYRINGE SQ SCH (10:36)
[2020-08-26] MEDS: DOCUSATE 100 MG CAP PO SCH (10:36)
[2020-08-26] MEDS: LACTOBACILLUS ACIDOPH & BULGAR 1 EACH PACKET PO SCH (10:36)
[2020-08-26] MEDS: CLOPIDOGREL 75 MG TAB PO SCH (10:42)
--- NOTE | 2020-08-26 12:36 | CT ---
EXAMINATION TYPE: CT angio head neck DATE OF EXAM: 08/26/2020 COMPARISON: CT brain 08/24/2020 and ultrasound 08/25/2020 HISTORY: 80-year-old male Abnormal US. TECHNIQUE: Contiguous axial scanning of the head and neck performed with IV Contrast, patient injecte d with 65 mL of Isovue 370. Coronal/sagittal MIP reconstructions performed. 3-D reconstructions gener ated on a dedicated independent workstation. CT DLP: 549.1 mGycm Automated exposure control for dose reduction was used. FINDINGS: NECK: COPD with moderate emphysema in the visualized upper lungs. Areas of dependent atelectasis are presen t. Small area of groundglass opacity anterior left upper lobe. Mild to moderate atherosclerotic arch calcifications. Ectatic upper descending thoracic aorta at 3.3 cm. Mild atherosclerotic narrowing at the origin of the brachiocephalic and left common carotid arteries. Possible moderate atherosclerotic narrowing of the bilateral vertebral artery origins. The vessels ar e codominant and otherwise patent throughout their course. Right common carotid artery is patent. Moderate atherosclerotic change of the right carotid bifurcation with mild, less than 25% narrowing i n the proximal right ICA. Remainder of the left common carotid artery is patent. Severe atherosclerotic change within the left bifurcation with a large plaque in the distal common carotid artery narrowing the lumen to 2.0 mm. Th is qualifies as a severe, 80% focal stenosis. Mild, less than 15% narrowing from atherosclerotic calcification and soft plaque within the left lundberg tid bulb. Remainder of the left internal carotid artery is patent. HEAD: Focal atherosclerotic calcification proximal V4 segment right vertebral artery causing moderate narro wing. Otherwise, the bilateral vertebral and basilar arteries are patent as is the remainder of the p osterior circulation. Moderate atherosclerotic calcifications within the bilateral carotid siphons. There are mild segmenta l narrowing within the right carotid siphon. Small bilateral posterior communicating arteries are seen. The anterior circulation is patent. No aneurysmal change is identified. IMPRESSION: NECK: 1. POSSIBLE MODERATE ATHEROSCLEROTIC NARROWING AT THE ORIGIN OF THE BILATERAL VERTEBRAL ARTERIES. THE REMAINDER OF THE VERTEBRAL ARTERIES ARE PATENT THROUGHOUT THE COURSE. 2. SEVERE ATHEROSCLEROTIC CHANGE AT THE LEFT CAROTID BIFURCATION WITH A LARGE SOFT PLAQUE LOCATED IN THE DISTAL LEFT COMMON CAROTID ARTERY NARROWING THE LUMEN DOWN TO 2 MM. THIS IS A SEVERE, 80% FOCAL S TENOSIS. 3. MILD ATHEROSCLEROTIC NARROWING WITHIN THE BILATERAL PROXIMAL ICA's, 25% OR LESS. HEAD: 4. MODERATE FOCAL ATHEROSCLEROTIC NARROWING PROXIMAL V4 SEGMENT RIGHT VERTEBRAL ARTERY. 5. MILD ATHEROSCLEROTIC NARROWING WITHIN THE BILATERAL CAROTID SIPHONS, RIGHT GREATER THE LEFT. 6. OTHERWISE, NO LARGE VESSEL INTRACRANIAL ARTERIAL OCCLUSION, SIGNIFICANT STENOSIS, OR ANEURYSMAL CH MARLENI IS SEEN.
--- NOTE | 2020-08-26 13:21 | P.PN ---
Subjective HISTORY OF PRESENTING ILLNESS This is a pleasant 80-year-old male past medical history significant for coronary artery disease status post bypass grafting with BRUNNER to LAD in 2004 and multiple PCI's, peripheral vascular disease status post femoral-popliteal bypass, bilateral lower extremity stenting, left carotid endarterectomy, hyperte nsion and dyslipidemia. He does not follow regularly in the office with a cable respooler, however he has been off in 2018 for outpatient cardiac catheterization. He is seen and examined sitting up in no acute distress. He denies any further symptoms of dizziness. Telemetry tracings reveal sinus me chanism and some sinus bradycardia heart rates in the 50s. Blood pressure 126/60 heart rate 57 afebrile maintaining oxygen saturation on nasal cannula. Orthostatic vital signs unremarkable. PHYSICAL EXAMINATION CONSTITUTIONAL: No apparent distress. HEENT: Head is normocephalic. Pupils are equal, round. Sclerae anicteric. Mucous membranes of the mouth are moist. No JVD. Bilateral carotid bruit left greater than right. CHEST EXAMINATION: Lungs are clear to auscultation. No chest wall tenderness is noted on palpation or with deep breathing. Diminished bilaterally. HEART EXAMINATION: Regular rate and rhythm. S1, S2 heard. Systolic ejection murmur at the base, no gallops or rub. EXTREMITIES: 1+ peripheral pulses, no lower extremity edema and no calf tenderness. ASSESSMENT Syncope Coronary artery disease status post bypass grafting Peripheral vascular disease Hypertension Dyslipidemia PLAN Currently stable for discharge on current medical regimen. Continue to hold atenolol. Recommend outpatient event monitoring. Follow-up with Dr. Griffith. Nurse Practitioner note has been reviewed, I agree with a documented findings and plan of care. Patient was seen and examined. Objective - Vital Signs Vital signs: Vital Signs Temp 98.1 F 08/26/20 04:00 Pulse 57 L 08/26/20 04:00 Resp 18 08/26/20 04:00 BP 126/60 08/26/20 04:00 Pulse Ox 97 08/26/20 04:00 Intake & Output 08/25/20 08/26/20 08/26/20 18:59 06:59 18:59 Intake Total 1220 Output Total 200 Balance 1020 Weight 72.5 kg 73.4 kg Intake: IV 20 Invasive Line 1 20 Oral 1200 Output: Urine 200 Other: # Voids 1 - Labs CBC & Chem 7: 08/26/20 07:33 08/26/20 07:33 Labs: Abnormal Lab Results - Last 24 Hours (Table) 08/25/20 08/25/20 08/26/20 Range/Units 12:03 17:00 07:33 Sodium 133 L (137-145) mmol/L Glucose 101 H (74-99) mg/dL POC Glucose (mg/dL) 107 H 113 H (75-99) mg/dL HDL Cholesterol 35 L (40-60) mg/dL Microbiology - Last 24 Hours (Table) 08/25/20 00:05 Blood Culture - Preliminary Blood No Growth after 24 hours 08/24/20 23:50 Blood Culture - Preliminary Blood No Growth after 24 hours
--- NOTE | 2020-08-26 14:14 | P.DS ---
Providers Date of admission: 08/25/20 02:10 Expected date of discharge: 08/26/20 Attending physician: Jillian Pimentel Consults: 08/25/20 02:10 Consult Physician Routine Consulting Provider: Pietro Scruggs Consult Reason/Comments: syncope Do you want consulting provider notified?: Yes Primary care physician: Jillian Pimentel Hospital Course: This is an 80 year old male one of my patient with a previous medical history significant for CAD post CABG and left heart catherization with PCI in 1997 and last heart catherization was in 10/15/2017 without intervention, hyperlipidemia, history of peripheral artery disease post left fem-pop bypass, and chronic claudication, history of carotid artery disease post left CEA, GERD and enlarged prostate, patient was brought into the Emergency department at [facility] after a syncopal episode that happened while he was sitting on the commode chair, by the time EMS got there he was still out of it, he remembered going to bathroom and he does not recall what happened after that, there was no seizure, no incontinence , he denies any chest pain or shortness of breath, he denies any headaches , no numbness or weakness, no dysphagia , no double vision, he was transported to the ER and his 12-Lead EKG did show old inferior AR with sinus bradycardia, CXR showed emphysema and because his D-Dimer was elevated CTA of the chest showed no evidence of PE, but showed sever epmhysema changes, patient was admitted to the hospital with cardiology consult. 08/26: Patient was seen by cardiology and atenolol was discontinued due to b radycardia. Recommendations were for outpatient event monitor which was arranged prior to discharge. Patient has had no further episodes of dizziness. No chest pain or shortness of breath. Heart rate has been in sinus bradycardia in the 50s, blood pressure 126/60, afebrile, pulse ox 93% on room air. CBC unremarkable. Sodium 133, potassium 4.6, creatinine 1. Liver function tests normal. Triglycerides 78, cholesterol 88, LDL 37, HDL 35. Patient will be discharged home today in stable condition. Echocardiogram reveals EF of 40-45% with mild concentric left ventricular hypertrophy, mild to moderate aortic regurgitation, mild mitral regurgitation, trace tricuspid regurgitation. Carotid ultrasound revealed moderate to severe atherosclerotic changes without hemodynamically significant stenosis estimated 50-60% on the left. CT angiogram of the neck revealed possible moderate atherosclerotic narrowing at the origin of the bilateral vertebral arteries. Severe atherosclerotic change of the left carotid bifurcation with large soft plaque noted in the distal left common carotid artery narrowing lumen down to 2 mm. This is severe 80% focal stenosis. Mild atherosclerotic narrowing with pain in bilateral proximal ICAs 25% or less. CT angiogram of the Head revealed moderate focal atherosclerotic narrowing proximal V4 segment right vertebral artery. Mild atherosclerotic narrowing within the bilateral carotid siphons, right greater than left. No large vessel intracranial arterial occlusion, significant stenosis or aneurysmal change. Discharge diagnoses: 1. Syncope, possible vasovagal syncope, possibly secondary to bradycardia. 2. CAD post CABG and PCI. 3. Hypertension and hypertensive cardiovascular disease. 4. Hyperlipidemia. 5. PAD post left Fem-Pop bypass with chronic claudication. 6. Enlarged prostate. 7. GERD. 8. Vitamin D deficiency. Discharge plan: Home Impression and plan of care have been directed as dictated by the signing physician. Jen Diaz nurse practitioner acting as scribe for signing physician. Patient Condition at Discharge: Good Plan - Discharge Summary Discharge Rx Participant: No New Discharge Prescriptions: Continue Omeprazole [PriLOSEC] 20 mg PO AC-BRKFST Aspirin EC [Ecotrin Low Dose] 81 mg PO DAILY [place]-3S/Dha/Epa/Fish Oil [[place]-3 Fish Oil 1,000 mg Sfgl] 1,200 mg PO DAILY Bifidobacterium Infantis [Align] 4 mg PO DAILY Cholecalciferol [Vitamin D3 (25 Mcg = 1000 Iu)] 1,000 unit PO DAILY ramipriL [Altace] 5 mg PO BID Atorvastatin [Lipitor] 80 mg PO HS Magnesium 250 mg PO DAILY Cilostazol [Pletal] 100 mg PO DAILY Discontinued Atenolol [Tenormin] 25 mg PO DAILY Clopidogrel Bisulfate [Plavix] 75 mg PO DAILY Discharge Medication List Aspirin EC [Ecotrin Low Dose] 81 mg PO DAILY 08/14/14 [History] Bifidobacterium Infantis [Align] 4 mg PO DAILY 08/14/14 [History] Cholecalciferol [Vitamin D3 (25 Mcg = 1000 Iu)] 1,000 unit PO DAILY 08/14/14 [History] [place]-3S/Dha/Epa/Fish Oil [[place]-3 Fish Oil 1,000 mg Sfgl] 1,200 mg PO DAILY 08/14/14 [History] Omeprazole [PriLOSEC] 20 mg PO AC-BRKFST 08/14/14 [History] ramipriL [Altace] 5 mg PO BID 11/08/17 [History] Atorvastatin [Lipitor] 80 mg PO HS 08/25/20 [History] Cilostazol [Pletal] 100 mg PO DAILY 08/25/20 [History] Magnesium 250 mg PO DAILY 08/25/20 [History] Follow up Appointment(s)/Referral(s): Jillian Pimentel MD [Primary Care Provider] - 09/01/20 10:45 am Lee Griffith MD [STAFF PHYSICIAN] - 09/06/20 10:00 am Patient Instructions/Handouts: Syncope (DC) Discharge Disposition: HOME SELF-CARE
[2020-08-26 14:23] VITALS: BP 139/74; PULSE 58; TEMP 97.2
--- NOTE | 2020-08-28 13:14 | P.HPIM ---
History of Present Illness H&P Date: 08/25/20 Chief Complaint: Syncope. This is an 80 year old male one of my patient with a previous medical history significant for CAD post CABG and left heart catherization with PCI in 1997 and last heart catherization was in 10/15/2017 without intervention, hyperlipidemia, history of peripheral artery disease post left fem-pop bypass, and chronic claudication, history of carotid artery disease post left CEA, GERD and enlarged prostate, patient was brought into the Emergency department at [facility] after a syncopal episode that happened while he was sitting on the commode chair, by the time EMS got there he was still out of it, he remembered going to bathroom and he does not recal what happened after that, there was no seizure, no incontinence , he denies any chest pain or shortness of breath, he denies any headaches , no numbness or weakness, no dysphagia , no double vision, he was transported to the ER and his 12-Lead EKG did show old inferior GA with sinus bradycardia, CXR showed emphysema and because his D-Dimer was elevated CTA of the chest showed no evidence of PE, but showed sever epmhysema changes, patient was admitted to the hospital with cardiology consult. Past Medical History Past Medical History: Coronary Artery Disease (CAD), Chest Pain / Angina, Hyperlipidemia, Hypertension, Myocardial Infarction (GA), Osteoarthritis (OA), Prostate Disorder, Vascular Disorder Additional Past Medical History / Comment(s): cataract, stents placed, PAD, carotid artery disease Last Myocardial Infarction Date:: 2014 History of Any Multi-Drug Resistant Organisms: None Reported Past Surgical History: Coronary Bypass/CABG, Heart Catheterization, Heart Catheterization With Stent, Hernia Repair Additional Past Surgical History / Comment(s): heart cath, stents, CABG, left leg fem-pop bypass, left carotid CEA. Past Anesthesia/Blood Transfusion Reactions: Postoperative Nausea & Vomiting (PONV) Date of Last Stent Placement:: 12/16/97 Past Psychological History: No Psychological Hx Reported Smoking Status: Former smoker (used to smoke a pack a day but quit more than 20 years ago.) Past Alcohol Use History: None Reported Past Drug Use History: None Reported - Past Family History Mother Family Medical History: No Reported History (Mother at the age of 85 from old age), Osteoarthritis (OA) Additional Family Medical History / Comment(s): multiple bowel problems, osteoporosis Father Family Medical History: Chest Pain / Angina, CVA/TIA, Myocardial Infarction (GA) (Father at the age of 87 from GA) Sister(s) Family Medical History: COPD, Myocardial Infarction (GA) (patient had 3 sisters one from heart disea and dementia, one is alive with osteoarthritis and the third one with hypertension) Brother(s) Family Medical History: Myocardial Infarction (GA) (Patient had 3 brothers one from GA, one from Suicide and one is ok) Daughter(s) Family Medical History: Diabetes Mellitus (one daughter with diabetes.) Medications and Allergies Home Medications Medication Instructions Recorded Confirmed Type Aspirin EC [Ecotrin Low Dose] 325 mg PO DAILY 08/14/14 11/13/17 History Atenolol [Tenormin] 25 mg PO DAILY 08/14/14 11/13/17 History Atorvastatin Calcium [Lipitor] 40 mg PO HS 08/14/14 11/13/17 History Bifidobacterium Infantis [Align] 4 mg PO DAILY 08/14/14 11/13/17 History Cholecalciferol [Vitamin D3 (25 2,000 unit PO DAILY 08/14/14 11/13/17 History Mcg = 1000 Iu)] Citrucel 1,500 mg PO DAILY 08/14/14 11/13/17 History [place]-3S/Dha/Epa/Fish Oil [[place]-3 1,200 mg PO DAILY 08/14/14 11/13/17 History Fish Oil 1,000 mg Sfgl] Omeprazole [PriLOSEC] 20 mg PO AC-BRKFST 08/14/14 11/13/17 History Clopidogrel Bisulfate [Plavix] 75 mg PO DAILY 11/08/17 11/13/17 History Docusate [Colace] 100 mg PO BID 11/08/17 11/13/17 History Magnesium Gluconate [Magonate] 250 mg PO DAILY 11/08/17 11/13/17 History ramipriL [Altace] 5 mg PO BID 11/08/17 11/13/17 History Allergies Allergy/AdvReac Type Severity Reaction Status Date / Time No Known Allergies Allergy Verified 02/23/20 11:31 Physical Exam Vitals: Vital Signs Temp Pulse Pulse Resp BP BP Pulse Ox 08/25/20 03:06 98 F 74 18 153/80 97 08/25/20 01:16 97.6 F 58 L 18 127/55 99 08/24/20 23:14 46 L 20 112/50 97 08/24/20 23:02 48 L 18 132/59 98 Intake and Output 08/24/20 08/24/20 08/25/20 14:59 22:59 06:59 Other: Weight 90.718 kg Physical examination: HEENT: head is atraumatic normocephalic, pupil were equal round reactive to light and accommodations extra ocular muscle movements were intact, mucous membranes of the mouth are somewhat dry. Neck: supple, decreased carotid upstrokes bilaterally, left CEA. Chest: decreased breath sounds at the bases with few ronchi, no expiratory wheezes, no chest wall tenderness or intercostal retractions. Heart: first heart sound is depressed , second heart sound is normal there is ALISIA 2/6 located at the left sternal border. Abdomen: soft non tender non distended positive bowel sounds. Extremities: there is no sheri ano calf tenderness, DP depreesed bilaterally. Neurologic examniation: patient is awake alert and oriented X 3 CN II-XII are grossly intact, Muscle power 4/5 in bilateral upper and lower extremities , deep tendon reflexes were normal. Results CBC & Chem 7: 08/24/20 23:23 08/24/20 23:23 Labs: Abnormal Lab Results - Last 24 Hours (Table) 08/24/20 08/24/20 08/24/20 Range/Units 23:04 23:23 23:23 APTT 20.0 L (22.0-30.0) sec D-Dimer 3.21 H (<0.60) mg/L FEU Sodium 133 L (137-145) mmol/L Carbon Dioxide 21 L (22-30) mmol/L Glucose 128 H (74-99) mg/dL POC Glucose (mg/dL) 113 H (75-99) mg/dL Thrombosis Risk Factor Assmnt - DVT/VTE Prophylaxis DVT/VTE Prophylaxis: Pharmacologic Prophylaxis ordered, Mechanical Prophylaxis ordered - Choose All That Apply Any of the Below Risk Factors Present?: No Other Risk Factors: Yes Each Risk Factor Represents 3 Points: Age 75 years or older Thrombosis Risk Factor Assessment Total Risk Factor Score: 3 Thrombosis Risk Factor Assessment Level: Moderate Risk Assessment and Plan Assessment: Assessment and plan: 1. Syncope, possible vasovagal syncope can not rule out cardiac arrhythmias due to his extensive vascular and CAD disease. cardiac enzymes, telemetry, echicardiogram and carotid duplex, cardiology consult. 2. CAD post CABG and PCI. we will continue with ASA 81 mg orally daily and Plavix 75 mg orally daily, Atenolol 25 mg orally daily along with Lipitor 80 mg orally daily. 3. Hypertension and hypertensive cardiovascular disease. we will continue with Atenolol 25 mg orally daily and Ramipril 5 mg orally bid. 4. Hyperlipidemia. we will continue with Lipitor 80 mg orally daily. 5. PAD post left Fem-Pop bypass with chronic claudication . we will continue with ASA, Plavix and Lipitor for secondary prevention, ther is no more intervention can be done for him. 6. Enlarged prostate. stable. 7. GERD. we will continue with Omeprazole 20 mg orally daily. 8. Vitamin D deficiency. we will continue with Vitamin D supplement. 9. DVT prophylaxis. we will continue with Lovenox 40 mg SC daily. 10. GI prophylaxis. we will continue with PPI. 11. Admits to inpatient , estimated length of stay 2 midnights. 12. Full code.
== END 2020-08-26 16:03 | disposition home or self-care (01) ==
LOC: EC 22:59 → 3SCARD 08-25 02:10
PROVIDERS: ADMIT Internal Medicine; ATTEND Internal Medicine
DX: R55 Syncope and collapse (principal); R00.1 Bradycardia, unspecified; I25.10 Atherosclerotic heart disease of native coronary artery without angina pectoris; I11.9 Hypertensive heart disease without heart failure; E78.5 Hyperlipidemia, unspecified; I73.9 Peripheral vascular disease, unspecified; N40.0 Benign prostatic hyperplasia without lower urinary tract symptoms; K21.9 Gastro-esophageal reflux disease without esophagitis; E55.9 Vitamin D deficiency, unspecified; H26.9 Unspecified cataract; I25.2 Old myocardial infarction; J43.9 Emphysema, unspecified; R79.1 Abnormal coagulation profile; I08.0 Rheumatic disorders of both mitral and aortic valves; I65.23 Occlusion and stenosis of bilateral carotid arteries; I67.2 Cerebral atherosclerosis; Z20.828 Contact with and (suspected) exposure to other viral communicable diseases; Z79.82 Long term (current) use of aspirin; Z79.899 Other long term (current) drug therapy; Z79.02 Long term (current) use of antithrombotics/antiplatelets; Z95.1 Presence of aortocoronary bypass graft; Z95.5 Presence of coronary angioplasty implant and graft; Z87.19 Personal history of other diseases of the digestive system; Z98.890 Other specified postprocedural states; Z95.820 Peripheral vascular angioplasty status with implants and grafts; Z91.89 Other specified personal risk factors, not elsewhere classified; Z87.891 Personal history of nicotine dependence; Z80.9 Family history of malignant neoplasm, unspecified; Z82.61 Family history of arthritis; Z83.79 Family history of other diseases of the digestive system; Z82.62 Family history of osteoporosis; Z82.3 Family history of stroke; Z82.49 Family history of ischemic heart disease and other diseases of the circulatory system; Z82.5 Family history of asthma and other chronic lower respiratory diseases; Z83.3 Family history of diabetes mellitus; Z81.8 Family history of other mental and behavioral disorders
CPT/HCPCS: 96372 ×2; 99285; 36415 ×2; 93005; 93306; 93270; 85379; 80061; 80053 ×2; 84443; 83605; 83735; 84484 ×2; 85025 ×2; 85610; 85730; 87040; 87635; 71045; 93880; 70496; 70450; 70498; 71275; G0378 ×2; J1650 ×2; Q9967 ×2